=== PATIENT | male | born 1985 | race Caucasian/White ===

== ENCOUNTER 2019-02-21 23:20 | Emergency (ER) | payer SELFPAY, OTHER ==
[~2019-02-21] VITALS: Ht 177.8 cm; Wt 81.6 kg
[2019-02-21 23:32] VITALS: BP 128/87
--- NOTE | 2019-02-21 23:33 | NUR ---
ED Nurse Note: pt presents to ED in [facility]' department custody for drug use. pt reports he took heroine but denies any N/V/ abd pain, respiratory or cardiac symptoms. pt reports he has been given narcan in the past for overdose without any reaction to it. pt also has a history of taking fentanyl but denies taking any today.
--- NOTE | 2019-02-21 23:39 | Emergency Room Report ---
History of Present Illness General Chief Complaint: Medical Clearance Source: Patient Present Illness HPI Disclaimer: Please note that this report is being documented using [employer] technology. This can lead to erroneous entry secondary to incorrect interpretation by the dictating instrument. HPI: 33-year-old male with a history of opiate abuse and alcohol abuse presents for evaluation of medical clearance prior to booking. According to secretary of police, the patient was found in a car with drug paraphernalia and was taken into custody. He had told police that he had swallowed some fentanyl tablets a statement which he then recanted. He stated that in the past a friend of his had told police during his arrest process that he had swallowed fentanyl and he was then not charged and not taken to central booking. The patient now states that he did not in fact swallow any fentanyl and that this was just a statement to get out of an arrest. He does admit to snorting heroin earlier in the day but denies any difficulty breathing, cough, shortness of breath, chest pain, loss of conscious, trauma or any other symptoms at this time. He also drank some alcohol earlier today. No other complaints at this time. PMH: Alcohol abuse, substance abuse PSH: Needed hand surgery Allergies: None reported Social Hx: Opiate abuse, alcohol abuse, tobacco use Review of Systems All Other Systems: negative except mentioned in HPI Physical Exam Vital Signs Date Time Temp Pulse Resp B/P (MAP) Pulse Ox O2 Delivery O2 Flow Rate FiO2 02/21/19 23:21 97.9 73 16 128/87 (101) 95 Room Air General: Awake and alert, no acute distress HEENT: NC/AT. EOMI. Cardiovascular: RRR. S1 and S2 normal. No murmur appreciated Resp: Normal work of breathing. No cough, wheezing or crackles appreciated Abdomen: Abdomen is soft, nondistended. Nontender Skin: Intact. No abrasions, laceration or rash over the exposed skin MSK: Normal tone and bulk. Moving all extremities. No obvious deformity. Neuro: Awake and alert. Mentating appropriately. Medical Decision Making Diagnostic Impression: Primary Impression: Medical clearance for incarceration Additional Impression: Opiate abuse, continuous ER Course 33-year-old male presents for evaluation of medical clearance prior to booking after stating that he ingested fentanyl tablets in an attempt to escape booking. The patient is now adamantly stating that he is not in fact take those tablets but was snorting heroin and drinking alcohol early in the day. No evidence of respiratory distress or respiratory depression. No signs of overdose or acute intoxication. The patient is medically cleared I do not believe there is an indication for emergent lab work or imaging at this time. He can be discharged to police custody and return with any new or worsening symptoms. Medically cleared for booking. Last Vital Signs Date Time Temp Pulse Resp B/P (MAP) Pulse Ox O2 Delivery O2 Flow Rate FiO2 02/21/19 23:32 73 16 Room Air 02/21/19 23:32 97.9 128/87 95 Disposition: D/C TO LAW ENFORCEMENT IN CUST Condition: Stable Referrals: [facility] Psych ER - Peds ER - [facility] Intake Hotline - Departure Forms: Care Home Clearance Patient Instructions: Finding Treatment for Addiction, Opioid Withdrawal Additional Instructions: Once released if you need help with drug or alcohol abuse he can use 1 of the resources listed here in your discharge paperwork. Please let 1 of the guards know immediately if you are having any difficulty breathing, changes in mental status, develop chest pain or any other sudden changes in your health. Follow- up with your doctor as soon as possible to discuss today's emergency department visit. Return to the ER with any new or worsening symptoms. Anthoyn Prince MD Feb 21, 2019 23:39
[2019-02-21 23:40] VITALS: BP 128/87
--- NOTE | 2019-02-21 23:40 | NUR ---
ER DISCHARGE NOTE: Patient is cleared to be discharged and booked per ERMD, pt is aox4, on room air, with stable vital signs. Officer was given dc instructions and has been medically cleared. pt id band removed without complications. pt is able to ambulate with steady gait. pt took all belongings and left with officer.
== END 2019-02-21 23:45 ==
LOC: EMR 23:43
DX: Z02.89 Encounter for other administrative examinations (principal); F11.10 Opioid abuse, uncomplicated; F10.10 Alcohol abuse, uncomplicated; Y90.9 Presence of alcohol in blood, level not specified; Z72.0 Tobacco use
CPT/HCPCS: 99282